=== PATIENT | female | born 1970 | race Caucasian/White ===

== ENCOUNTER 2021-05-19 18:31 | Inpatient (IN) ==
[2021-05-19] MEDS ORDERED: SODIUM CHLORIDE 0.9% 1000ML 1,000 ML IV ONE (18:45)
[2021-05-19] MEDS ORDERED: ACETAMINOPHEN 1,000 MG/100 ML VIAL IV STA (18:45)
--- NOTE | 2021-05-19 18:51 | Emergency Department Note ---
History of Present Illness General Chief complaint: Shortness of Breath/Dyspnea Stated complaint: Difficulty Breathing Time Seen by Provider: 05/19/21 18:34 Source: patient Mode of arrival: ambulatory Limitations: no limitations History of Present Illness Provider complaint: sob, cough, COVID Onset (ago): day(s) 9 Associated symptoms: + cough, + fever/chills, + headaches, + loss of appetite, + malaise, + nausea/vomiting and + shortness of breath; no chest pain This is a 50-year-old for presents emergency department with multiple complaints and Covid. Patient states her symptoms began 9 days ago, 1 day after her daughter was diagnosed with coronavirus. She states she assumed she was positive also. She states she initially started with some mild URI symptoms and a cough. Her symptoms began to progress and she did go to the [facility] her emergency room and was kept there overnight. She states she was given steroids at that time however was not discharged home on any. She states she was discharged with home oxygen and has been wearing that at 2 L/min. She states in the first several days she felt the oxygen was helping however over the last 2-3 she felt her breathing was worse. She states pulse ox at home on room air has been eighty-seven and 88%, and on her 2 L is at 93% although she still feels short of breath. Patient states she has persistent headaches, fevers, lower abdominal pain, and diarrhea. She denies any blood in her stools. Patient states she has not been able to eat due to nausea and loss of appetite although is not overtly vomiting. EMS reports they gave her a 500 mL bolus of normal saline and Solu-Medrol 125 mg in route. Patient denies any history of asthma, COPD, no history of tobacco abuse. Pt seen during a time of high acuity and national emergency pandemic while wearing PPE. Home Medications Medication Instructions Recorded Confirmed Type acetaminophen 500 mg tablet 1,000 mg PO Q6H PRN 05/19/21 05/19/21 History (Tylenol Extra Strength) azithromycin 250 mg tablet 250 mg PO DAILY 05/19/21 05/19/21 History dexamethasone 6 mg tablet 6 mg PO DAILY #10 tab 05/19/21 Rx (Decadron) Allergies Allergy/AdvReac Type Severity Reaction Status Date / Time Penicillins Allergy Unknown Verified 05/20/21 15:42 Sulfa (Sulfonamide Allergy Unknown Verified 05/20/21 15:42 Antibiotics) Past Med/Surg History Medical History (Updated 05/22/21 @ 07:09 by Brenna Giron DO) Endometriosis Kidney stone Surgical History (Updated 05/20/21 @ 15:42 by Katie Beck) S/P hysterectomy Social History (System 05/20/21 @ 15:42 by Katie Beck) Smoking Status: Former smoker Hx Alcohol Use: Yes Hx Substance Use: No Preferred Language: German Communication Ability: Effective 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 Beliefs That Will Affect Care: None Current Living Situation: Family Feels Safe at Home: No Safety Concerns: Feels Safe At This Time Assistive Devices: Glasses and Oxygen - Continuous Review of Systems A total of 10 systems reviewed and were otherwise negative All systems reviewed & are unremarkable except as noted in HPI & below Physical Exam Vital Signs Vital Signs - 24 hr 05/19/21 18:43 05/19/21 19:05 05/19/21 19:52 Temperature 39.5 C H Temperature Source Oral Pulse Rate 110 H Pulse Rate [Finger] 99 H Respiratory Rate 20 18 Respiratory Effort / Characteristics Non-Labored Respiratory Depth Blood Pressure 111/69 Blood Pressure [Right Arm] 136/87 Blood Pressure Mean 83 Blood Pressure Mean [Right Arm] 103 Blood Pressure Position [Right Arm] Lying Pulse Oximetry 87 L 93 Oxygen Delivery Method Room Air Nasal Cannula Oxygen Flow Rate 2 Sepsis Recent Fever Within 48 Hours Yes Sepsis New/Unexplained Change in Mental Status No Sepsis Action Taken by Nursing Physician Notified Oxygen Flow Rate - Titration 2 Pulse Oximetry Post Tiitration 93 05/19/21 20:10 05/19/21 20:15 05/19/21 22:55 Temperature 38.8 C H 38.8 C H 36.6 C Temperature Source Oral Oral Oral Pulse Rate Pulse Rate [Finger] 74 Respiratory Rate 17 Respiratory Effort / Characteristics Non-Labored Respiratory Depth Normal Blood Pressure Blood Pressure [Right Arm] 95/66 L Blood Pressure Mean Blood Pressure Mean [Right Arm] 75 Blood Pressure Position [Right Arm] Lying Pulse Oximetry 94 Oxygen Delivery Method Oxygen Flow Rate 3 Sepsis Recent Fever Within 48 Hours Sepsis New/Unexplained Change in Mental Status Sepsis Action Taken by Nursing Oxygen Flow Rate - Titration Pulse Oximetry Post Tiitration 05/19/21 23:29 Temperature Temperature Source Pulse Rate Pulse Rate [Finger] 71 Respiratory Rate 16 Respiratory Effort / Characteristics Respiratory Depth Blood Pressure Blood Pressure [Right Arm] 101/60 Blood Pressure Mean Blood Pressure Mean [Right Arm] 73 Blood Pressure Position [Right Arm] Lying Pulse Oximetry 96 Oxygen Delivery Method Room Air Oxygen Flow Rate Sepsis Recent Fever Within 48 Hours Sepsis New/Unexplained Change in Mental Status Sepsis Action Taken by Nursing Oxygen Flow Rate - Titration Pulse Oximetry Post Tiitration GENERAL: alert, ill appearing, well nourished, mild distress, non-toxic EYE EXAM: normal conjunctiva, PERRL and EOM's grossly intact OROPHARYNX: no exudate, no erythema, lips, buccal mucosa, and tongue normal and mucous membranes are moist NECK: supple, no nuchal rigidity, no adenopathy, non-tender LUNGS: Clear to auscultation. Normal chest wall mechanics, no w/r/r, RA sats 87%, NC placed HEART: no murmurs, S1 normal and S2 normal ABDOMEN: abdomen soft, non-tender, normo-active bowel sounds, no masses, no rebound or guarding. BACK: Back is symmetrical on inspection and there is no deformity, no midline tenderness, no CVA tenderness. SKIN: no rashes and no bruising UPPER EXTREMITIES: upper extremities are grossly normal. FROM, nml pulses b/l. LOWER EXTREMITIES: No pitting edema. FROM, nml pulses b/l. NEURO EXAM: Normal sensorium, cranial nerves II-XII grossly intact, normal speech, no gross weakness of arms, no gross weakness of legs. Gross sensation intact. Course Course 2124: Updated patient at bedside. I did review paperwork that was obtained from MADYSON Jarrett regarding her recent hospitalization. Patient did have a CT of the chest to rule out PE during this process on May 17. 2201: Discussed monoclonal antibodies with the patient after she reviewed the paperwork. Patient was scheduled to have this infusion performed tomorrow morning at [facility]. 5: Patient has finished monoclonal antibody infusion, will continue to mo nitor. 0026: Pt states she is feeling well. VS stable. Administered Medications Acetaminophen (Acetaminophen 325 Mg Tab) 650 mg PO Q4H PRN PRN Reason: Pain or Fever Stop: 06/19/21 15:01 Last Admin: 05/21/21 08:04 Dose: 650 mg Documented by: [id number] Benzonatate (Benzonatate 100 Mg Capsule) 100 mg PO TID JOSEPH Stop: 06/19/21 20:59 Last Admin: 05/21/21 20:40 Dose: 100 mg Documented by: [id number] Admin: 05/21/21 13:35 Dose: 100 mg Documented by: [id number] Admin: 05/21/21 08:03 Dose: 100 mg Documented by: [id number] Admin: 05/20/21 20:29 Dose: 100 mg Documented by: [id number] Enoxaparin Sodium (Enoxaparin Inj 40 Mg/0.4 Ml Syr) 40 mg SQ Q12H JOSEPH Stop: 06/19/21 15:01 Last Admin: 05/21/21 20:40 Dose: 40 mg Documented by: [id number] Admin: 05/21/21 08:02 Dose: 40 mg Documented by: [id number] Admin: 05/20/21 20:30 Dose: 40 mg Documented by: [id number] Dexamethasone 6 mg/ Syringe 1.5 mls @ 1 mls/min IV DAILY JOSEPH Stop: 05/31/21 08:59 Last Admin: 05/21/21 08:03 Dose: 1 mls/min Documented by: [id number] Potassium Chloride (Potassium Chloride Crtab 20 Meq Tabcr) 20 meq PO BID JOSEPH Stop: 06/20/21 08:59 Last Admin: 05/21/21 20:40 Dose: 20 meq Documented by: [id number] Discontinued Medications Acetaminophen (Acetaminophen 500 Mg Tab) 1,000 mg PO NOW STA Stop: 05/20/21 08:53 Last Admin: 05/20/21 10:28 Dose: 1,000 mg Documented by: [id number] Dexamethasone Sodium Phosphate (DexamethasonePf 10 Mg/Ml Vial) 6 mg IV NOW ONE Stop: 05/20/21 08:55 Last Admin: 05/20/21 10:27 Dose: 6 mg Documented by: [id number] Sodium Chloride (Nss 1000ml) 1,000 mls @ 999 mls/hr IV .Q1H1M ONE Stop: 05/19/21 19:45 Last Infusion: 05/19/21 20:38 Dose: 0 mls/hr Documented by: [id number] Admin: 05/19/21 19:11 Dose: 999 mls/hr Documented by: [id number] Acetaminophen (Ofirmev) 1,000 mg in 100 mls @ 400 mls/hr IV NOW STA Stop: 05/19/21 18:59 Last Infusion: 05/19/21 20:38 Dose: 0 mls/hr Documented by: [id number] Admin: 05/19/21 19:29 Dose: 400 mls/hr Documented by: [id number] Casirivimab 1,200 mg/ Sodium (Chloride) 110 mls @ 310 mls/hr IV NOW ONE; Protocol Stop: 05/19/21 22:41 Last Infusion: 05/19/21 23:21 Dose: 0 mls/hr Documented by: [id number] Admin: 05/19/21 22:59 Dose: 310 mls/hr Documented by: [id number] Sodium Chloride (Nss) 500 mls @ 999 mls/hr IV .Q31M ONE Stop: 05/19/21 23:58 Last Infusion: 05/20/21 00:05 Dose: 0 mls/hr Documented by: [id number] Admin: 05/19/21 23:30 Dose: 999 mls/hr Documented by: [id number] Sodium Chloride (Nss 1000ml) 1,000 mls @ 999 mls/hr IV .Q1H1M ONE Stop: 05/20/21 09:52 Last Infusion: 05/20/21 11:41 Dose: 0 mls/hr Documented by: [id number] Admin: 05/20/21 10:29 Dose: 999 mls/hr Documented by: [id number] Potassium Chloride (K Jose / Wtr) 10 meq in 100 mls @ 100 mls/hr IV Q1H JOSEPH Stop: 05/20/21 14:59 Last Infusion: 05/20/21 16:35 Dose: 0 mls/hr Documented by: [id number] Admin: 05/20/21 15:30 Dose: 100 mls/hr Documented by: [id number] Infusion: 05/20/21 15:11 Dose: 100 mls/hr Documented by: [id number] Admin: 05/20/21 14:11 Dose: 100 mls/hr Documented by: [id number] Potassium Chloride (K Jose / Wtr) 10 meq in 100 mls @ 100 mls/hr IV Q1H STA Stop: 05/20/21 11:31 Last Infusion: 05/20/21 13:10 Dose: 0 mls/hr Documented by: [id number] Admin: 05/20/21 11:41 Dose: 100 mls/hr Documented by: [id number] Sodium Chloride (Nss 1000ml) 1,000 mls @ 80 mls/hr IV .[id number] STA Stop: 05/21/21 00:01 Last Infusion: 05/20/21 18:30 Dose: 0 mls/hr Documented by: [id number] Admin: 05/20/21 11:41 Dose: 80 mls/hr Documented by: [id number] Potassium Chloride/Sodium Chloride (Normal Saline W/20 Meq Kcl) 20 meq in 1,000 mls @ 100 mls/hr IV .Q10H JOSEPH Stop: 06/19/21 15:01 Last Admin: 05/21/21 11:59 Dose: Not Given Documented by: [id number] Infusion: 05/21/21 11:59 Dose: 0 mls/hr Documented by: [id number] Admin: 05/21/21 03:11 Dose: 100 mls/hr Documented by: [id number] Infusion: 05/21/21 03:11 Dose: 100 mls/hr Documented by: [id number] Admin: 05/20/21 18:30 Dose: 100 mls/hr Documented by: [id number] Sodium Chloride (Nss 1000ml) 250 mls @ 999 mls/hr IV .Q16M ONE Stop: 05/20/21 17:57 Last Infusion: 05/20/21 18:30 Dose: 0 mls/hr Documented by: [id number] Admin: 05/20/21 18:09 Dose: 999 mls/hr Documented by: [id number] Ioversol (Optiray 320 125ml) 118 ml IV ONCE ONE Stop: 05/20/21 20:11 Last Admin: 05/20/21 20:10 Dose: 118 ml Documented by: [id number] Ketorolac Tromethamine (Ketorolac Tromethamine 15 Mg/Ml Vial) 10 mg IV NOW ONE Stop: 05/19/21 19:27 Last Admin: 05/19/21 19:30 Dose: 10 mg Documented by: [id number] Menthol (Cough Drop (Sugar Free) Angelica 24 Angelica/1 Box) 1 angelica BUCCAL NOW STA Stop: 05/20/21 23:45 Last Admin: 05/21/21 00:39 Dose: Not Given Documented by: [id number] Menthol (Cough Drop (Sugar Free) Angelica 24 Angelica/1 Box) Confirm Administered Dose 24 angelica BUCCAL .STK-MED ONE Stop: 05/20/21 23:35 Last Admin: 05/21/21 00:39 Dose: 24 angelica Documented by: [id number] Miscellaneous (Stat Iv) 1 ea N/A NOW STA Stop: 05/19/21 22:06 Last Admin: 05/19/21 23:48 Dose: 1 ea Documented by: [id number] Potassium Chloride (Potassium Chloride Crtab 20 Meq Tabcr) 20 meq PO NOW ONE Stop: 05/21/21 09:01 Last Admin: 05/21/21 08:57 Dose: 20 meq Documented by: [id number] Sodium Chloride (Sodium Chloride 0.9% 10ml Flush) 30 ml IV ONCE ONE Stop: 05/19/21 22:36 Last Admin: 05/19/21 23:20 Dose: 30 ml Documented by: [id number] Medical Decision Making Differential Diagnosis Differential diagnoses includes but is not limited to pneumonia, bronchitis, COPD/Asthma exacerbation, pneumothorax, pulmonary embolism, congestive heart failure, acute coronary syndrome Medical Records Attestation: I reviewed the patient's medical records. Home Medications Current Medication List: was personally reviewed by me Laboratory Data Attestation: I reviewed the patient's lab results. Result diagrams: 05/21/21 07:19 05/21/21 07:19 Lab Results 05/19/21 05/19/21 05/20/21 Range/Units 18:55 18:55 09:07 WBC 5.47 9.68 (4.8-10.8) K/uL RBC 4.57 4.81 (4.2-5.4) M/uL Hgb 14.1 14.6 (12.0-16.0) g/dL Hct 40.1 42.8 (37-47) % MCV 87.7 89.0 (80-100) fL MCH 30.9 30.4 (25-34) pg MCHC 35.2 34.1 (32-36) g/dL RDW Std Deviation 44.4 45.5 (36.4-46.3) fL RDW Coeff of Yessenia 13.7 13.9 (11.5-14.5) % Plt Count 140 166 (130-400) K/uL MPV 9.6 9.5 (7.4-10.4) fL Immature Gran % (Auto) 0.2 0.2 % Neut % (Auto) 87.2 90.0 % Lymph % (Auto) 8.6 6.0 % [place] % (Auto) 3.8 3.7 % Eos % (Auto) 0.0 0.0 % Baso % (Auto) 0.2 0.1 % Neut # (Auto) 4.77 8.71 H (1.4-6.5) K/uL Lymph # (Auto) 0.47 L 0.58 L (1.2-3.4) K/uL [place] # (Auto) 0.21 0.36 (0.11-0.59) K/uL Eos # (Auto) 0.00 0.00 (0-0.5) K/uL Baso # (Auto) 0.01 0.01 (0-0.2) K/uL Immature Gran # (Auto) 0.01 0.02 (0.00-0.02) K/uL Sodium 134 L (136-145) mmol/L Potassium 3.2 L (3.5-5.1) mmol/L Chloride 101 (98-107) mmol/L Carbon Dioxide 24 (21-32) mmol/L Anion Gap 9.0 (3-11) BUN 15 (7-18) mg/dl Creatinine 0.69 (0.6-1.2) mg/dl Est Cr Clr Drug Dosing 103.6 ml/min Est GFR ( Amer) 116.8 ml/min Est GFR (Non-Af Amer) 100.8 ml/min BUN/Creatinine Ratio 21.0 H (10-20) Glucose 126 H (70-99) mg/dl Calcium 8.6 (8.5-10.1) mg/dl Magnesium 2.0 (1.8-2.4) mg/dl Total Bilirubin 0.7 (0.2-1) mg/dl AST 100 H (15-37) U/L ALT 87 H (12-78) U/L Alkaline Phosphatase 107 (45-117) U/L Troponin I < 0.015 (0-0.045) ng/ml NT-Pro-B Natriuret Pep 176 (0-900) pg/ml Total Protein 7.2 (6.4-8.2) gm/dl Albumin 3.4 (3.4-5.0) gm/dl Globulin 3.8 (2.5-4.0) gm/dl Albumin/Globulin Ratio 0.9 (0.9-2) Lipase 145 (73-393) U/L TSH (0.300-4.500) uIu/ml 05/20/21 Range/Units 09:07 WBC (4.8-10.8) K/uL RBC (4.2-5.4) M/uL Hgb (12.0-16.0) g/dL Hct (37-47) % MCV (80-100) fL MCH (25-34) pg MCHC (32-36) g/dL RDW Std Deviation (36.4-46.3) fL RDW Coeff of Yessenia (11.5-14.5) % Plt Count (130-400) K/uL MPV (7.4-10.4) fL Immature Gran % (Auto) % Neut % (Auto) % Lymph % (Auto) % [place] % (Auto) % Eos % (Auto) % Baso % (Auto) % Neut # (Auto) (1.4-6.5) K/uL Lymph # (Auto) (1.2-3.4) K/uL [place] # (Auto) (0.11-0.59) K/uL Eos # (Auto) (0-0.5) K/uL Baso # (Auto) (0-0.2) K/uL Immature Gran # (Auto) (0.00-0.02) K/uL Sodium 139 (136-145) mmol/L Potassium 3.4 L (3.5-5.1) mmol/L Chloride 104 (98-107) mmol/L Carbon Dioxide 25 (21-32) mmol/L Anion Gap 10.0 (3-11) BUN 13 (7-18) mg/dl Creatinine 0.58 L (0.6-1.2) mg/dl Est Cr Clr Drug Dosing 123.3 ml/min Est GFR ( Amer) 123.7 ml/min Est GFR (Non-Af Amer) 106.7 ml/min BUN/Creatinine Ratio 22.6 H (10-20) Glucose 92 (70-99) mg/dl Calcium 8.9 (8.5-10.1) mg/dl Magnesium 2.7 H (1.8-2.4) mg/dl Total Bilirubin 0.5 (0.2-1) mg/dl AST 101 H (15-37) U/L ALT 96 H (12-78) U/L Alkaline Phosphatase 99 (45-117) U/L Troponin I < 0.015 (0-0.045) ng/ml NT-Pro-B Natriuret Pep (0-900) pg/ml Total Protein 7.3 (6.4-8.2) gm/dl Albumin 3.4 (3.4-5.0) gm/dl Globulin 3.9 (2.5-4.0) gm/dl Albumin/Globulin Ratio 0.9 (0.9-2) Lipase (73-393) U/L TSH 0.464 (0.300-4.500) uIu/ml Imaging Data Radiologist's Impression: Chest X-Ray 05/19/21 18:45 XR chest 1V portable HISTORY: 50 years-old Female covid, sob, cough acute shortness of breath with cough COMPARISON: None TECHNIQUE: Portable AP view of the chest FINDINGS: Cardiac silhouette is upper limits of normal in size. Interstitial coarsening with ill-defined bilateral peripheral predominant airspace opacities, left greater than right. No pneumothorax or large pleural effusion. The bones appear normal. IMPRESSION: Bilateral pulmonary opacities are suggestive of viral pneumonia. ACT 112: Negative or not required by law. The above report was generated using voice recognition software. It may contain grammatical, syntax or spelling errors. Electronically signed by: David Boo M.D. 05/19/2021 7:23 PM ECG Data Attestation: I personally reviewed and interpreted this ECG as follows: Indication: + SOB/dyspnea and + weakness Rate (beats per minute): 105 Rhythm: + sinus tachycardia ECG Intervals/blocks: + Normal QRS and + Normal QT ECG [place]: + Normal ECG ST segments: + Normal ST segments MDM Narrative This is a 50-year-old female resents the emergency department complaining of shortness of breath. Patient with known coronavirus and was already placed on oxygen via nasal cannula to wear at home. Patient had previously taken a course of prednisone as an outpatient as prescribed by her PCP. Patient seen and evaluated here, did appear hemodynamically stable, and had no increased work of breathing or significant respiratory distress. Patient's oxygen was turned up to 3 L/min and patient stated she did feel improved. Labs are reassuring. Mild transaminitis I feel is likely secondary to her viral process. Patient's chest x-ray is consistent with a Covid infection. I did review outpatient paperwork from MADYS[facility] Jarrett during patient's recent admission. She did have a CT of the chest 2 days ago. This was negative for PE and again consistent with Covid pneumonia. I do not feel patient requires repeat CT at this time. I do not suspect PE, ACS, CHF, pericarditis/Myocarditis, pericardial effusion, mediastinitis, tamponade, dissection. I did discuss with the patient monoclonal antibody treatment, she was scheduled for this as an outpatient tomorrow. We will proceed with this tonight and continue to observe the patient. Patient observed for many hours here as a precaution and continue to report feeling improved. Did discuss with patient close follow-up, slightly increasing her home oxygen therapy, use of Decadron at home, symptoms to watch and return for, she verbalized understanding was in agreement with plan. An order was placed for continuous cardiac monitoring. The monitor shows a rate of _82__ with __normal sinus_ rhythm. Patient has no family history of pneumonia. Patient was first seen and observation began at 1834 and was necessary in order to evaluate patient's dyspnea in the setting of Covid, provide additional therapies and monitor for changes. Upon re-evaluation, 10 hours of observation revealed that the patient could be discharged. Discharge time at 0800. Impression & Plan Dyspnea, COVID-19, Cough, Fatigue, Hx monoclonal drug therapy Discharge Plan Visit Data Chief Complaint: Shortness of Breath/Dyspnea Stated Complaint: Difficulty Breathing ED Provider: Rafi Lindsey Discharge Problem: Dyspnea, COVID-19, Cough, Fatigue, Hx monoclonal drug therapy Patient Disposition: Home - Self-Care Condition: Good Discharge Instructions Interventions: ED Discharge Assessment Last Done: 05/20/21 14:11
[2021-05-19 19:05] LABS: Basophils # (auto) 0.01 K/uL (0-0.2); Basophils % (auto) 0.2 %; Hematocrit (blood only) 40.1 % (37-47); Hemoglobin 14.1 g/dL (12.0-16.0); Immature Granulocytes # (auto) 0.01 K/uL (0.00-0.02); Immature Granulocytes % (auto) 0.2 %; Lymphocytes # (auto) 0.47 K/uL (1.2-3.4); Lymphocytes % (auto) 8.6 %; Mean Corpuscular Hemoglobin 30.9 pg (25-34); Mean Corpuscular Hgb Conc 35.2 g/dL (32-36); Mean Corpuscular Volume 87.7 fL (80-100); Mean Platelet Volume 9.6 fL (7.4-10.4); Monocytes # (auto) 0.21 K/uL (0.11-0.59); Monocytes % (auto) 3.8 %; Neutrophils # (auto) 4.77 K/uL (1.4-6.5); Neutrophils % (auto) 87.2 %; Platelet Count 140 K/uL (130-400); RDW Coefficient of Variation 13.7 % (11.5-14.5); RDW Standard Deviation 44.4 fL (36.4-46.3); Red Blood Count 4.57 M/uL (4.2-5.4); White Blood Count 5.47 K/uL (4.8-10.8)
[2021-05-19 19:22] LABS: Alanine Aminotransferase 87 U/L (12-78); Albumin Level 3.4 gm/dl (3.4-5.0); Aspartate Aminotransferase 100 U/L (15-37); Blood Urea Nitrogen 15 mg/dl (7-18); Calcium 8.6 mg/dl (8.5-10.1); Carbon Dioxide 24 mmol/L (21-32); Chloride 101 mmol/L (98-107); Creatinine Clr Calc Pharmacy 103.6 ml/min; Est GFR (African American) 116.8 ml/min; Est GFR (Non-African American) 100.8 ml/min; Glucose 126 mg/dl (70-99); Lipase 145 U/L (73-393); Potassium 3.2 mmol/L (3.5-5.1); Sodium 134 mmol/L (136-145)
--- NOTE | 2021-05-19 19:24 | XRay Report ---
XR chest 1V portable HISTORY: 50 years-old Female covid, sob, cough acute shortness of breath with cough COMPARISON: None TECHNIQUE: Portable AP view of the chest FINDINGS: Cardiac silhouette is upper limits of normal in size. Interstitial coarsening with ill-defined bilate ral peripheral predominant airspace opacities, left greater than right. No pneumothorax or large pleu ral effusion. The bones appear normal. IMPRESSION: Bilateral pulmonary opacities are suggestive of viral pneumonia. ACT 112: Negative or not required by law. The above report was generated using voice recognition software. It may contain grammatical, syntax o r spelling errors. Electronically signed by: David Boo M.D. 05/19/2021 7:23 PM
[2021-05-19] MEDS ORDERED: KETOROLAC TROMETHAMINE 15 MG/ML VIAL IV ONE (19:26)
[2021-05-19 19:27] LABS: Albumin Globulin Ratio 0.9 (0.9-2); Alkaline Phosphatase 107 U/L (45-117); Bilirubin,Total 0.7 mg/dl (0.2-1); Globulin 3.8 gm/dl (2.5-4.0); NT Pro B Type Natriuretic Pept 176 pg/ml (0-900); Total Protein 7.2 gm/dl (6.4-8.2); Troponin I < 0.015 ng/ml (0-0.045)
[2021-05-19] MEDS ORDERED: ACETAMINOPHEN 325 MG TAB PO PRN (22:05)
[2021-05-19] MEDS ORDERED: methylPREDNISolone 125 MG/2 ML VIAL IV PRN (22:05)
[2021-05-19] MEDS ORDERED: diphenhydrAMINE 50 MG/ML VIAL IV PRN (22:05)
[2021-05-19] MEDS ORDERED: STAT IV STA (22:05)
[2021-05-19] MEDS ORDERED: ONDANSETRON INJ 2 MG/ML 2 ML VIAL IV PRN (22:05)
[2021-05-19] MEDS ORDERED: EPINEPHrine INJ 1 MG/ML AMP IM PRN (22:05)
[2021-05-19] MEDS ORDERED: CASIRIVIMAB/IMDEVIMAB 1,200 MG in 0.9 % SODIUM CHLORIDE 100 ML IV ONE (22:20)
[2021-05-19] MEDS ORDERED: 0.2 MICRON FILTER SET 1 EA IV ONE (22:35)
[2021-05-19] MEDS ORDERED: SODIUM CHLORIDE 0.9% 10ML FLUSH IV ONE (22:35)
[2021-05-19] MEDS ORDERED: SODIUM CHLORIDE 0.9% 500 ML IV ONE (23:28)
[2021-05-20] MEDS ORDERED: ACETAMINOPHEN 500 MG TAB PO STA (08:52)
[2021-05-20] MEDS ORDERED: SODIUM CHLORIDE 0.9% 1000ML 1,000 ML IV ONE (08:52)
[2021-05-20] MEDS ORDERED: dexAMETHasone**PF** 10 MG/ML VIAL IV ONE (08:54)
--- NOTE | 2021-05-20 08:58 | Emergency Department Note ---
ED Visit Note Patient was waiting here in the emergency department overnight awaiting transportation home in the morning. Patient has been on her oxygen all night and was doing well. Alerted by staff this morning that she began to complain of worsening shortness of breath headaches and some chest burning. Patient was noted to have an elevated heart rate. Patient does have a fever now. Given additional Tylenol. Patient not in extremis on reevaluation or altered. Patient's records and note from last night were reviewed. Recently had a negative PE study in the last several days per note from last night. Patient with Covid pneumonia. EKG completed here this morning questions SVT via electronic interpretation but on the V1 lead appears clear P waves. Believe this is likely significantly sinus tachycardia related to her fever and illness. Given IV fluid and Tylenol here. Given a dose of dexamethasone given her hypoxia and oxygen usage and her extended stay. Previously received steroids. Discussed with the patient given her significant fatigue and dyspnea even while going to the bathroom where she desats, don't feel the patient is stable enough to go home. She is in agreement. Asked the hospitalist to evaluate for admission. Repeat blood work from this morning was sent. Lower suspicion at this time for acute ACS. Repeat blood work is reassuring with a negative troponin. Question of some part of this is reactive due to her fever. Patient currently persistent tachycardia that later broke here. Given her Covid illness I do not feel treatment with adenosine is appropriate given her stability although do question if she may have experienced a brief episode of sustained SVT or a flutter. Hospitalist agrees with this yuni n. EK bpm sinus tachycardia without PVC. No acute ST segment elevation with some V3 and V2 T wave inversions noted. Compared to previous From this past evening heart rates now increased but similar morphologies. . : Dyspnea Qualifiers: Dyspnea type: shortness of breath Qualified Code(s): R06.02 - Shortness of breath Fatigue Qualifiers: Fatigue type: unspecified Qualified Code(s): R53.83 - Other fatigue
[2021-05-20 09:22] LABS: Basophils # (auto) 0.01 K/uL (0-0.2); Basophils % (auto) 0.1 %; Hematocrit (blood only) 42.8 % (37-47); Hemoglobin 14.6 g/dL (12.0-16.0); Immature Granulocytes # (auto) 0.02 K/uL (0.00-0.02); Immature Granulocytes % (auto) 0.2 %; Lymphocytes # (auto) 0.58 K/uL (1.2-3.4); Mean Corpuscular Hemoglobin 30.4 pg (25-34); Mean Corpuscular Hgb Conc 34.1 g/dL (32-36); Mean Platelet Volume 9.5 fL (7.4-10.4); Monocytes # (auto) 0.36 K/uL (0.11-0.59); Monocytes % (auto) 3.7 %; Neutrophils # (auto) 8.71 K/uL (1.4-6.5); Platelet Count 166 K/uL (130-400); RDW Coefficient of Variation 13.9 % (11.5-14.5); RDW Standard Deviation 45.5 fL (36.4-46.3); Red Blood Count 4.81 M/uL (4.2-5.4); White Blood Count 9.68 K/uL (4.8-10.8)
[2021-05-20 09:40] LABS: Alanine Aminotransferase 96 U/L (12-78); Albumin Level 3.4 gm/dl (3.4-5.0); Aspartate Aminotransferase 101 U/L (15-37); BUN Creatinine Ratio 22.6 (10-20); Blood Urea Nitrogen 13 mg/dl (7-18); Calcium 8.9 mg/dl (8.5-10.1); Carbon Dioxide 25 mmol/L (21-32); Chloride 104 mmol/L (98-107); Creatinine Clr Calc Pharmacy 123.3 ml/min; Est GFR (African American) 123.7 ml/min; Est GFR (Non-African American) 106.7 ml/min; Glucose 92 mg/dl (70-99); Magnesium 2.7 mg/dl (1.8-2.4); Potassium 3.4 mmol/L (3.5-5.1); Sodium 139 mmol/L (136-145)
[2021-05-20 09:51] LABS: Albumin Globulin Ratio 0.9 (0.9-2); Alkaline Phosphatase 99 U/L (45-117); Bilirubin,Total 0.5 mg/dl (0.2-1); Globulin 3.9 gm/dl (2.5-4.0); Thyroid Stimulating Hormone 0.464 uIu/ml (0.300-4.500); Total Protein 7.3 gm/dl (6.4-8.2); Troponin I < 0.015 ng/ml (0-0.045)
--- NOTE | 2021-05-20 09:56 | History & Physical Report ---
Date of Service May 20, 2021 Assessment & Plan (1) Acute respiratory failure with hypoxia: Plan: AHRF 2/2 COVID19 PNA - See COVID19 tx (2) COVID-19: Plan: - COVID19 positive - ~day 10 of illness - Receieved monoclonal Ab yesterday - Progressive worsening, 2L o2 requirement, ?development of SVT overnight -Admit to PCU, +1L NSS, continue dexamethasone 6mg daily - Remdesivir deferred after risk/benefit discussion. Pt on 10 day of sx with less benefit and has a mild transaminitis on admission - Spirometer, Flutter PRN - Nebs Q6H PRN (3) Cough: Plan: - COVID tx as noted (4) Fatigue: Plan: - COVID tx as noted (5) Tachycardia: Plan: - Initial concern for SVT - EKG: tachycardic, P waves visable on EKG. Suspect sinus tach - Admit to PCU - IVFM and tx as above -Heart rate improved with supportive care and fluids - Continue to monitor (6) DVT prophylaxis: Plan: Lovenox COVID dosing Diet: Regular, IVFM 100cc/hr Dispo: PCU COVID+ CODE STATUS: Full Code (7) Transaminitis: History of Present Illness Primary Care Provider: Bill Man, COVID PNA Started with cough 10 days ago, intermittent fevers and chills. Persistent cough and shortness of breath have worsened over the last week. Some burning in her throught. No chest pain, chest pressure, or palpitations. Endorses terrible headache. Diarrhea 1x a day liquid no blood or melena. Some cough/stress incontinence. No appetite, has not been eating and trying to drink fluids as much as she can at home. ONly keeping water down. Denies nausea. Intermittent abdominal pain. Got monoclonal ab last night. No fhx of arrythmia. Lives at home. Daughter had COVID 19 day before she did, 'breezed right through it and wasn't very sick.' Did not get the COVID vaccination MedHx: Denies other med problems, hx of kidney stones Medications: NOne Allergie: PCN, Sulfa Fhx: No fhx of blood clots, strokes, [place] Social: Lives at home with and 3 children, no one other than daughter is sick. No hx of tobacco product use. Rare social alcohol. No recreational drug use.l No Hx of asthma or lung problems. Discussed case with pts in detail. Confirms had CT-PE at [facility] which was negative Allergies Allergy/AdvReac Type Severity Reaction Status Date / Time Penicillins Allergy Unknown Verified 05/19/21 19:22 Sulfa (Sulfonamide AdvReac jaw locked Verified 05/19/21 19:22 Antibiotics) Home Medications Medication Instructions Recorded Confirmed Type acetaminophen 500 mg tablet 1,000 mg PO Q6H PRN 05/19/21 05/19/21 History (Tylenol Extra Strength) azithromycin 250 mg tablet 250 mg PO DAILY 05/19/21 05/19/21 History dexamethasone 6 mg tablet 6 mg PO DAILY #10 tab 05/19/21 Rx (Decadron) Past Med/Surg History Medical History (Updated 05/20/21 @ 15:03 by Viet Alvarado MD) Endometriosis Kidney stone Surgical History (Updated 05/20/21 @ 09:54 by Viet Alvarado MD) S/P hysterectomy Social History Smoking Status: Never smoker Feels Safe at Home: Yes Review of Systems Review of Systems: Constitutional: See HPI Eyes: Denies double vision, vision change, eye pain ENT: Denies ear pain, sore throat, sinus pain Cardiovascular: Denies Chest pain, chest pressure, palpitations, extremity swelling Respiratory: See HPI Gastrointestinal: See HPI Genitourinary: See HPI Musculoskeletal: Endorses body aches, global fatigue Integumentary:Denies rash, lesions, bruising Neurological: See HPI Physical Exam Physical Exam: General: A&Ox3. Appears ill. Skin warm, moist. HEENT: Atraumatic, normocephalic. Visual acuity and hearing grossly intact. Pulm: Bilateral crackles, expiratory wheezes appreciated. Symmetrical chest rise. No respiratory distress. Cardiac: tachycardic, regular, -mrg. Radial pulses intact and symmetrical. Abdominal: Nontender, nondistended, soft. BS present. CRANIAL NERVES: II: Pupils equal and reactive, no relative afferent pupillary defect, no VF cuts III, IV, : EOM intact, no gaze preference or deviation, no nystagmus. 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 PT/radial pulse intact and symmetrical Results & Data Results & Data ([facility]) Vital Signs (Past 12 Hours) Vital Signs Temp Pulse Pulse Resp BP BP Pulse Ox 05/20/21 08:48 39.5 C H 153 H 21 119/80 95 05/20/21 05:44 98 05/20/21 03:27 97 05/20/21 02:22 86 H 99/56 L 99 05/19/21 23:29 71 16 101/60 96 05/19/21 22:55 36.6 C 74 17 95/66 L 94 Laboratory Results Abnormal lab results 05/19/21 05/19/21 05/20/21 Range/Units 18:55 18:55 09:07 Neut # (Auto) 8.71 H (1.4-6.5) K/uL Lymph # (Auto) 0.47 L 0.58 L (1.2-3.4) K/uL Sodium 134 L (136-145) mmol/L Potassium 3.2 L (3.5-5.1) mmol/L Creatinine (0.6-1.2) mg/dl BUN/Creatinine Ratio 21.0 H (10-20) Glucose 126 H (70-99) mg/dl Magnesium (1.8-2.4) mg/dl AST 100 H (15-37) U/L ALT 87 H (12-78) U/L 05/20/21 Range/Units 09:07 Neut # (Auto) (1.4-6.5) K/uL Lymph # (Auto) (1.2-3.4) K/uL Sodium (136-145) mmol/L Potassium 3.4 L (3.5-5.1) mmol/L Creatinine 0.58 L (0.6-1.2) mg/dl BUN/Creatinine Ratio 22.6 H (10-20) Glucose (70-99) mg/dl Magnesium 2.7 H (1.8-2.4) mg/dl AST 101 H (15-37) U/L ALT 96 H (12-78) U/L Diagnostic Findings Chest X-Ray 05/19/21 18:45 XR chest 1V portable HISTORY: 50 years-old Female covid, sob, cough acute shortness of breath with cough COMPARISON: None TECHNIQUE: Portable AP view of the chest FINDINGS: Cardiac silhouette is upper limits of normal in size. Interstitial coarsening with ill-defined bilateral peripheral predominant airspace opacities, left greater than right. No pneumothorax or large pleural effusion. The bones appear normal. IMPRESSION: Bilateral pulmonary opacities are suggestive of viral pneumonia. ACT 112: Negative or not required by law. The above report was generated using voice recognition software. It may contain grammatical, syntax or spelling errors. Electronically signed by: David Boo M.D. 05/19/2021 7:23 PM PG Care Time/CCT Total # of Minutes Spent Total Time Spent with Patient: Total time spent is greater than 50% in coordination of care (as documented) at patient's floor/unit and/or counseling patient: Coding Level of Care Code 54451 Initial Inpt Care Lvl 3 Diagnoses Acute respiratory failure with hypoxia J96.01 COVID-19 U07.1 Cough R05 Fatigue R53.83 Fatigue type: unspecified DVT prophylaxis Z29.9 Tachycardia R00.0 Transaminitis R74.01 (1) Fatigue Fatigue type: unspecified Qualified Code(s): R53.83 - Other fatigue
[2021-05-20] MEDS ORDERED: POTASSIUM CHLORIDE / WTR 10 MEQ/100 ML PLCT IV STA (10:32)
[2021-05-20] MEDS ORDERED: SODIUM CHLORIDE 0.9% 1000ML 1,000 ML IV STA (11:32)
[2021-05-20] MEDS: POTASSIUM CHLORIDE / WTR 10 MEQ/100 ML PLCT IV SCH ×2 (14:11→15:30)
[2021-05-20] MEDS ORDERED: ONDANSETRON INJ 2 MG/ML 2 ML VIAL IV PRN (15:02)
[2021-05-20] MEDS ORDERED: MoRPHine SULFATE 2 MG/ML CARP IV PRN (15:02)
[2021-05-20] MEDS ORDERED: HYDROmorphone INJ 1 MG/ML SYRINGE IV PRN (15:02)
--- NOTE | 2021-05-20 15:28 | Electrocardiogram Report ---
Test Reason : Blood Pressure : / mmHG Vent. Rate : 105 BPM Atrial Rate : 105 BPM P-R Int : 144 ms QRS Dur : 084 ms QT Int : 346 ms P-R-T Axes : 064 -10 034 degrees QTc Int : 457 ms Sinus tachycardia Possible Left atrial enlargement Nonspecific ST and T wave abnormality Abnormal ECG No previous ECGs available Confirmed by Lennox Lindquist ([id number]) on 05/20/2021 3:27:48 PM Referred By: REFERRED SELF Confirmed By:Lennox Lindquist
--- NOTE | 2021-05-20 15:34 | Electrocardiogram Report ---
Test Reason : Blood Pressure : / mmHG Vent. Rate : 152 BPM Atrial Rate : 152 BPM P-R Int : 000 ms QRS Dur : 082 ms QT Int : 340 ms P-R-T Axes : 000 -35 039 degrees QTc Int : 540 ms Sinus tachycardia Left axis deviation Nonspecific ST and T wave abnormality Abnormal ECG When compared with ECG of 19-MAY-2021 19:43, (unconfirmed) No significant change was found Confirmed by Lennox Lindquist ([id number]) on 05/20/2021 3:34:22 PM Referred By: REFERRED SELF Confirmed By:Lennox Lindquist
--- NOTE | 2021-05-20 15:39 | Electrocardiogram Report ---
Test Reason : Blood Pressure : / mmHG Vent. Rate : 099 BPM Atrial Rate : 099 BPM P-R Int : 164 ms QRS Dur : 088 ms QT Int : 332 ms P-R-T Axes : 069 -06 046 degrees QTc Int : 426 ms Normal sinus rhythm Nonspecific ST and T wave abnormality Abnormal ECG When compared with ECG of 20-MAY-2021 08:40, (unconfirmed) Vent. rate has decreased BY 53 BPM Confirmed by Lennox Lindquist ([id number]) on 05/20/2021 3:38:59 PM Referred By: REFERRED SELF Confirmed By:Lennox Lindquist
[2021-05-20 17:13] LABS: D Dimer 1100 ug/L FEU (0-500)
[2021-05-20] MEDS ORDERED: SODIUM CHLORIDE 0.9% 1000ML 250 ML IV ONE (17:42)
[2021-05-20] MEDS: NSS + 20MEQ KCL 20 MEQ/1,000 ML BAG IV SCH (18:30)
[2021-05-20] MEDS ORDERED: OPTIRAY 320 125ml IV ONE (20:10)
--- NOTE | 2021-05-20 20:28 | CT Scan Report ---
CHEST CTA for PULMONARY ARTERIES CT DOSE: 518.01 mGycm HISTORY: Shortness of breath. Covid positive. TECHNIQUE: Multiaxial CT images of the chest were performed following the intravenous administration of contrast to evaluate the pulmonary arteries. Maximal intensity projection images were also obtaine d. A dose lowering technique was utilized adhering to the principles of ALARA. COMPARISON STUDY: None. FINDINGS: Limited views of the upper abdomen demonstrate hepatic steatosis and a normal spleen. A few prominent mediastinal and bilateral hilar lymph nodes. These are likely reactive to the pneumonia. T he heart is normal in size. Normal esophagus. No pleural or pericardial effusions. No fractures withi n the visualized osseous structures of the chest. No pneumothorax. The central airways are patent. Mu ltifocal groundglass airspace opacities most pronounced within the bilateral lower lobes. This is con sistent with a viral pneumonia. Normal caliber thoracic aorta with no evidence for dissection. No derrick ling defects within the pulmonary arteries to suggest a pulmonary embolus. IMPRESSION: 1. No evidence for pulmonary embolus. 2. Moderate multifocal groundglass airspace opacities consistent with a viral pneumonia. ACT 112: Negative or not required by law. Electronically signed by: Saul Chau M.D. 05/20/2021 8:27 PM
[2021-05-20] MEDS: BENZONATATE 100 MG CAPSULE PO SCH (20:29)
[2021-05-20] MEDS: ENOXAPARIN INJ 40 MG/0.4 ML SYR SQ SCH (20:30)
[2021-05-20] MEDS ORDERED: COUGH DROP (SUGAR FREE) LOZ 24 LOZ/1 BOX BUCCAL ONE (23:34)
[2021-05-20] MEDS ORDERED: COUGH DROP (SUGAR FREE) LOZ 24 LOZ/1 BOX BUCCAL STA (23:44)
[2021-05-21] MEDS: NSS + 20MEQ KCL 20 MEQ/1,000 ML BAG IV SCH ×2 (03:11→11:59)
[2021-05-21 07:59] LABS: Basophils # (auto) 0.01 K/uL (0-0.2); Basophils % (auto) 0.2 %; Hematocrit (blood only) 37.1 % (37-47); Hemoglobin 12.6 g/dL (12.0-16.0); Immature Granulocytes # (auto) 0.01 K/uL (0.00-0.02); Immature Granulocytes % (auto) 0.2 %; Lymphocytes # (auto) 1.07 K/uL (1.2-3.4); Lymphocytes % (auto) 16.5 %; Mean Corpuscular Hemoglobin 30.3 pg (25-34); Mean Corpuscular Volume 89.2 fL (80-100); Mean Platelet Volume 9.3 fL (7.4-10.4); Monocytes # (auto) 0.26 K/uL (0.11-0.59); Neutrophils # (auto) 5.14 K/uL (1.4-6.5); Neutrophils % (auto) 79.1 %; Platelet Count 178 K/uL (130-400); RDW Coefficient of Variation 13.8 % (11.5-14.5); RDW Standard Deviation 45.6 fL (36.4-46.3); Red Blood Count 4.16 M/uL (4.2-5.4); White Blood Count 6.49 K/uL (4.8-10.8)
[2021-05-21] MEDS: ENOXAPARIN INJ 40 MG/0.4 ML SYR SQ SCH ×2 (08:02→20:40)
[2021-05-21] MEDS: BENZONATATE 100 MG CAPSULE PO SCH ×3 (08:03→20:40)
[2021-05-21] MEDS: dexAMETHasone 6 MG in SYRINGE 0 ML IV SCH (08:03)
[2021-05-21] MEDS: ACETAMINOPHEN 325 MG TAB PO PRN (08:04)
[2021-05-21 08:30] LABS: Albumin Level 2.8 gm/dl (3.4-5.0); BUN Creatinine Ratio 19.7 (10-20); Calcium 8.5 mg/dl (8.5-10.1); Creatinine Clr Calc Pharmacy 159.2 ml/min; Est GFR (African American) 133.5 ml/min; Est GFR (Non-African American) 115.2 ml/min; Potassium 3.3 mmol/L (3.5-5.1)
[2021-05-21 08:33] LABS: Albumin Globulin Ratio 0.7 (0.9-2); Bilirubin,Total 0.6 mg/dl (0.2-1); Globulin 3.8 gm/dl (2.5-4.0); Total Protein 6.6 gm/dl (6.4-8.2)
[2021-05-21] MEDS ORDERED: POTASSIUM CHLORIDE CRTAB 20 MEQ TABCR PO ONE (09:00)
--- NOTE | 2021-05-21 13:54 | Hospitalist Progress Note ---
Date of Service May 21, 2021 Assessment & Plan (1) Acute respiratory failure with hypoxia: Plan: - COVID19 positive - Presented on 05/20 at ~day 10 of illness - Receieved monoclonal Ab 05/19 -Tenuous require 2 L, appears ill - Remdesivir deferred after risk/benefit discussion. Pt on 10 day of sx with less benefit and has a mild transaminitis on admission - Spirometer, Flutter PRN - Nebs Q6H PRN Continue Decadron 10-day course (2) COVID-19: Plan: Treatment as otherwise noted D-dimer elevated, given elevated D-dimer on admission with tacky arrhythmia was concerned for potential CT PE from patient's interval assessment at [facility] Repeat CTPE ordered 05/20. No evidence for pulmonary embolus. Moderate multifocal groundglass airspace opacities consistent with a viral pneumonia. (3) Cough: Plan: Tessalon as needed, Covid treatment as noted (4) Fatigue: Plan: 2/2 Covid pneumonia expect slow gradual resolution (5) Tachycardia: Plan: Sinus tachycardia Initial concern for SVT, on EKG P waves visible Improved substantially following fluid resuscitation and supportive care Continue supportive care, fluids as needed if poor p.o. intake, continue telemetry (6) DVT prophylaxis: Plan: Lovenox Covid dosing (7) Transaminitis: Plan: 2/2 Covid, continue to trend Admission and Anticipated Discharge Date Admission Date: May 20, 2021 Subjective Seen at bedside today. And reports she continues to feel very ill and wiped out, a little bit better today and is eating a little bit better. She reports she is still requiring oxygen, and still has fevers, chills improved. Persistent intermittent headache continues. She is not short of breath at time of assessment, but reports she becomes short of breath easily especially with coughing. Cough is nonproductive. No nausea/vomiting. No chest pain/chest pressure this morning. No leg edema. No dysuria. Is very concerned about returning home and how long she is contagious for, discussed Covid course and will provide literature resources to patient. Review of Systems Review of Systems: Constitutional: See HPI Eyes: Denies double vision, vision change, eye pain ENT: Denies ear pain, sore throat, sinus pain Cardiovascular: Denies Chest pain, chest pressure, palpitations, extremity swelling Respiratory: See HPI Gastrointestinal: See HPI Genitourinary: See HPI Musculoskeletal: Endorses body aches, global fatigue Integumentary:Denies rash, lesions, bruising Neurological: See HPI Physical Exam Physical Exam: General: A&Ox3. Appears ill. Skin warm, moist. HEENT: Atraumatic, normocephalic. Visual acuity and hearing grossly intact. Pulm: Bilateral crackles, expiratory wheezes appreciated. Symmetrical chest rise. No respiratory distress. Cardiac: tachycardic, regular, -mrg. Radial pulses intact and symmetrical. Abdominal: Nontender, nondistended, soft. BS present. MOTOR: Moving all extremities equally No LE swelling. PT/radial pulse intact and symmetrical SENSORY: Normal to touch in upper and lower extremities without deficit or asymmetry Results & Data Results & Data ([facility]) Vital Signs (Past 12 Hours) Vital Signs Temp Pulse Pulse Pulse Resp BP Pulse Ox 05/21/21 11:33 37.3 C 94 H 20 111/76 92 05/21/21 07:37 92 H 05/21/21 07:18 37.4 C 104 H 20 111/79 93 05/21/21 03:12 37.5 C 94 H 20 106/71 92 PG Care Time/CCT Total # of Minutes Spent Total Time Spent with Patient: Total time spent is greater than 50% in coordination of care (as documented) at patient's floor/unit and/or counseling patient: Coding Level of Care Code 72982 Subseq Hosp Care Lvl 3 Diagnoses Acute respiratory failure with hypoxia J96.01 COVID-19 U07.1 Cough R05 Fatigue R53.83 Fatigue type: unspecified Tachycardia R00.0 DVT prophylaxis Z29.9 Transaminitis R74.01 (1) Fatigue Fatigue type: unspecified Qualified Code(s): R53.83 - Other fatigue
[2021-05-21] MEDS: POTASSIUM CHLORIDE CRTAB 20 MEQ TABCR PO SCH (20:40)
[2021-05-21] MEDS ORDERED: POLYETHYLENE (MIRALAX) 17 GM PACK PO PRN (21:22)
[2021-05-22 07:21] LABS: Basophils # (auto) 0.01 K/uL (0-0.2); Basophils % (auto) 0.2 %; Hematocrit (blood only) 42.7 % (37-47); Immature Granulocytes # (auto) 0.01 K/uL (0.00-0.02); Immature Granulocytes % (auto) 0.2 %; Lymphocytes # (auto) 1.01 K/uL (1.2-3.4); Lymphocytes % (auto) 22.2 %; Mean Corpuscular Hemoglobin 30.1 pg (25-34); Mean Corpuscular Hgb Conc 32.8 g/dL (32-36); Mean Corpuscular Volume 91.8 fL (80-100); Mean Platelet Volume 9.5 fL (7.4-10.4); Monocytes # (auto) 0.37 K/uL (0.11-0.59); Monocytes % (auto) 8.1 %; Neutrophils # (auto) 3.15 K/uL (1.4-6.5); Neutrophils % (auto) 69.3 %; Platelet Count 256 K/uL (130-400); RDW Coefficient of Variation 13.8 % (11.5-14.5); RDW Standard Deviation 46.2 fL (36.4-46.3); Red Blood Count 4.65 M/uL (4.2-5.4); White Blood Count 4.55 K/uL (4.8-10.8)
[2021-05-22 07:55] LABS: Albumin Level 3.1 gm/dl (3.4-5.0); BUN Creatinine Ratio 23.9 (10-20); Creatinine Clr Calc Pharmacy 119.3 ml/min; Est GFR (African American) 121.7 ml/min; Potassium 3.4 mmol/L (3.5-5.1)
[2021-05-22 07:58] LABS: Albumin Globulin Ratio 0.8 (0.9-2); Bilirubin,Total 0.7 mg/dl (0.2-1); Total Protein 7.1 gm/dl (6.4-8.2)
[2021-05-22] MEDS: ENOXAPARIN INJ 40 MG/0.4 ML SYR SQ SCH ×2 (08:38→19:49)
[2021-05-22] MEDS: dexAMETHasone 6 MG in SYRINGE 0 ML IV SCH (08:38)
[2021-05-22] MEDS: POTASSIUM CHLORIDE CRTAB 20 MEQ TABCR PO SCH ×2 (08:39→19:48)
[2021-05-22] MEDS: BENZONATATE 100 MG CAPSULE PO SCH ×3 (08:47→19:48)
--- NOTE | 2021-05-22 15:42 | Hospitalist Progress Note ---
Date of Service May 22, 2021 Assessment & Plan (1) Acute respiratory failure with hypoxia: Plan: Summary: 50yo F who presented to the ED after d/c from [facility] and prior ER visit with worsening COVID ~day 10 and who was febrile, with tachyarrythmia, tachypnea and hypotension now improving. AHRF and sepsis by qSOFA criteria (2 points) abd SIRS criteria 2/2 COVID PNA - COVID19 positive - Presented on 05/20 at ~day 10 of illness - Receieved monoclonal Ab 05/19 - Downtrending O2 requirments and stabilizing vitals, pt remains severely ill with poor PO intake. -Tenuous require 2 L, appears ill - Remdesivir deferred after risk/benefit discussion. Pt on 10 day of sx with less benefit and has a mild transaminitis on admission - Spirometer, Flutter PRN - Nebs Q6H PRN Continue Decadron 10-day course (2) COVID-19: Plan: Treatment as otherwise noted D-dimer elevated, given elevated D-dimer on admission with tacky arrhythmia was concerned for potential CT PE from patient's interval assessment at [facility] Repeat CTPE ordered 05/20. No evidence for pulmonary embolus. Moderate multifocal groundglass airspace opacities consistent with a viral pneumonia. (3) Cough: Plan: Tessalon as needed, Covid treatment as noted (4) Fatigue: Plan: 2/2 Covid pneumonia expect slow gradual resolution (5) Tachycardia: Plan: Sinus tachycardia Initial concern for SVT, on EKG P waves visible Improved substantially following fluid resuscitation and supportive care Continue supportive care, fluids as needed if poor p.o. intake, continue telemetry (6) DVT prophylaxis: Plan: Lovenox Covid dosing (7) Transaminitis: Plan: 2/2 Covid, continue to trend Plan: Sepsis 2/2 COVID PNA with tachyarrythmia >150bmp on admission. Improving, progressing towards discharge. Has oxygen at home. Anticipate dc home when medically ready and PO intake improved. Admission and Anticipated Discharge Date Admission Date: May 20, 2021 Subjective Saw Vivian at the bedside this morning. Stil lhaving poor PO intake, but slightly improved today. No nausea/vomiting, no diarrhea. SHort of breath with ambulation, mild shortness of breath at rest improved with oxygen. No chest pain, chest pressure, palpidations. No fevers, chills sweats. Endorses intermittent but improving headache. Review of Systems Review of Systems: Constitutional: See HPI Eyes: Denies double vision, vision change, eye pain ENT: Denies ear pain, sore throat, sinus pain Cardiovascular: Denies Chest pain, chest pressure, palpitations, extremity swelling Respiratory: See HPI Gastrointestinal: See HPI Genitourinary: See HPI Musculoskeletal: Endorses body aches, global fatigue improved from prior Integumentary: Denies rash, lesions, bruising Neurological: See HPI Physical Exam Physical Exam: General: A&Ox3. NAD. Cooperative. HEENT: Atraumatic, normocephalic. Visual acuity and hearing intact Pulm: Moderate air movement, diffuse crackles, bibasilar crackles. Symmetrical chest rise. No increase work of breathing. No respiratory distress. Cardiac: RRR, -mrg. Radial pulses intact and symmetrical. Abdominal: Nontender, nondistended, soft. BS present. Ext: Warm, moist. Results & Data Results & Data ([facility]) Vital Signs (Past 12 Hours) Vital Signs Temp Pulse Resp BP BP Pulse Ox 05/22/21 12:12 36.6 C 86 16 112/72 93 05/22/21 11:15 94 05/22/21 08:35 36.5 C 84 24 105/83 89 L 05/22/21 03:17 36.7 C 78 20 109/73 91 PG Care Time/CCT Total # of Minutes Spent Total Time Spent with Patient: Total time spent is greater than 50% in coordination of care (as documented) at patient's floor/unit and/or counseling patient: Coding Level of Care Code 22428 Subseq Hosp Care Lvl 3 Diagnoses Acute respiratory failure with hypoxia J96.01 COVID-19 U07.1 Cough R05 Fatigue R53.83 Fatigue type: unspecified Tachycardia R00.0 DVT prophylaxis Z29.9 Transaminitis R74.01 (1) Fatigue Fatigue type: unspecified Qualified Code(s): R53.83 - Other fatigue
[2021-05-22] MEDS: ACETAMINOPHEN 325 MG TAB PO PRN (17:51)
[2021-05-23] MEDS ORDERED: ALBUTEROL HFA 8 GM INHALER INH PRN (01:51)
[2021-05-23] MEDS ORDERED: guaiFENesin/DEXTROM SYRUP 100MG/10MG 5ML UDC PO PRN (02:00)
[2021-05-23 07:37] LABS: Basophils # (auto) 0.01 K/uL (0-0.2); Basophils % (auto) 0.2 %; Eosinophils # (auto) 0.01 K/uL (0-0.5); Eosinophils % (auto) 0.2 %; Hematocrit (blood only) 42.9 % (37-47); Hemoglobin 14.2 g/dL (12.0-16.0); Immature Granulocytes # (auto) 0.02 K/uL (0.00-0.02); Immature Granulocytes % (auto) 0.3 %; Lymphocytes # (auto) 1.23 K/uL (1.2-3.4); Lymphocytes % (auto) 21.1 %; Mean Corpuscular Hemoglobin 30.3 pg (25-34); Mean Corpuscular Hgb Conc 33.1 g/dL (32-36); Mean Corpuscular Volume 91.5 fL (80-100); Mean Platelet Volume 9.3 fL (7.4-10.4); Monocytes # (auto) 0.56 K/uL (0.11-0.59); Monocytes % (auto) 9.6 %; Neutrophils # (auto) 4.01 K/uL (1.4-6.5); Neutrophils % (auto) 68.6 %; Platelet Count 313 K/uL (130-400); RDW Coefficient of Variation 13.5 % (11.5-14.5); Red Blood Count 4.69 M/uL (4.2-5.4); White Blood Count 5.84 K/uL (4.8-10.8)
[2021-05-23] MEDS: POTASSIUM CHLORIDE CRTAB 20 MEQ TABCR PO SCH ×2 (07:59→19:15)
[2021-05-23] MEDS: dexAMETHasone 6 MG in SYRINGE 0 ML IV SCH (07:59)
[2021-05-23] MEDS: ENOXAPARIN INJ 40 MG/0.4 ML SYR SQ SCH ×2 (07:59→20:18)
[2021-05-23 08:05] LABS: Albumin Level 3.2 gm/dl (3.4-5.0); BUN Creatinine Ratio 28.9 (10-20); Creatinine Clr Calc Pharmacy 136.1 ml/min; Est GFR (African American) 127.4 ml/min; Est GFR (Non-African American) 109.9 ml/min; Potassium 3.8 mmol/L (3.5-5.1)
[2021-05-23 08:07] LABS: Albumin Globulin Ratio 0.8 (0.9-2); Bilirubin,Total 0.8 mg/dl (0.2-1); Globulin 3.8 gm/dl (2.5-4.0)
[2021-05-23] MEDS: BENZONATATE 100 MG CAPSULE PO SCH ×3 (08:07→19:15)
--- NOTE | 2021-05-23 13:31 | Hospitalist Progress Note ---
Date of Service May 23, 2021 Assessment & Plan (1) Acute respiratory failure with hypoxia: Plan: Summary: 50yo F who presented to the ED after d/c from [facility] and prior ER visit with worsening COVID ~day 10 and who was febrile, with tachyarrythmia, tachypnea and hypotension now improving. AHRF and sepsis by qSOFA criteria (2 points) abd SIRS criteria 2/2 COVID PNA Improved, patient continues to have a residual oxygen requirement but is stable on less than 4 L with ambulation on two-step. Her acute sepsis has resolved, anticipate a slow recovery and will likely require home oxygen for several days to weeks as she recovers from Covid. - COVID19 positive - Presented on 05/20 at ~day 10 of illness - Received monoclonal Ab 05/19 - Remdesivir deferred after risk/benefit discussion. Pt on 10 day of sx with less benefit and has a mild transaminitis on admission - Spirometer, Flutter PRN - Nebs Q6H PRN Continue Decadron 10-day course - Discussed her case with both Vivian and her by phone, given her overnight desaturation, history of multiple hospital bounce backs, tachyarrhythmia on admit while being d/tayo from ER, and her episode of hypoxia last night they do not feel comfortable with discharge today, but comfortable with discharge tomorrow if remaining stable overnight (2) COVID-19: Plan: Treatment as otherwise noted D-dimer elevated, given elevated D-dimer on admission with tacky arrhythmia was concerned for potential CT PE from patient's interval assessment at [facility] Repeat CTPE ordered 05/20. No evidence for pulmonary embolus. Moderate multifocal groundglass airspace opacities consistent with a viral pneumonia. (3) Cough: Plan: Tessalon as needed, Covid treatment as noted (4) Fatigue: Plan: 2/2 Covid pneumonia expect slow gradual resolution (5) Tachycardia: Plan: Sinus tachycardia Initial concern for SVT, on EKG P waves visible Improved substantially following fluid resuscitation and supportive care Continue supportive care, fluids as needed if poor p.o. intake, continue telemetry (6) DVT prophylaxis: Plan: Lovenox Covid dosing (7) Transaminitis: Plan: 2/2 Covid, continue to trend Plan: Sepsis 2/2 COVID PNA with tachyarrythmia >150bmp on admission. Improving, progressing towards discharge. Has oxygen at home. Anticipate dc home when medically ready and PO intake improved. Admission and Anticipated Discharge Date Admission Date: May 20, 2021 Subjective Seen at bedside this morning. Pt anxious, reports had an episode last night where she got up and attempted to go to the bathroom with her oxygen and desatted to the high 70s/low 80s. She reports this made her feel extremely anxious and unsure, but feels like she has been okay this morning since waking up. No shortness of breath at rest. Some shortness of breath with exertion which improves with rest. No fever/chills. Continues to have a dry cough. No abdominal pain appetite is good, no nausea/vomiting/diarrhea/constipation. Discussed her case with both Vivian and her by phone, given her history of multiple hospital bounce backs, tachyarrhythmia on admit while being d/tayo from ER, and her episode of hypoxia last night they do not feel comfortable with discharge today, but feel that she may be ready to go tomorrow Review of Systems Review of Systems: Constitutional: See HPI Eyes: Denies double vision, vision change, eye pain ENT: Denies ear pain, sore throat, sinus pain Cardiovascular: Denies Chest pain, chest pressure, palpitations, extremity swelling Respiratory: See HPI Gastrointestinal: See HPI Genitourinary: See HPI Musculoskeletal: Endorses body aches, global fatigue improved from prior Integumentary: Denies rash, lesions, bruising Neurological: See HPI Physical Exam Physical Exam: General: A&Ox3. NAD, appears anxious. Cooperative. HEENT: Atraumatic, normocephalic. Visual acuity and hearing intact Pulm: Moderate air movement, diffuse crackles. Symmetrical chest rise. No increase work of breathing. No respiratory distress. Cardiac: RRR, -mrg. Radial pulses intact and symmetrical. Abdominal: Nontender, nondistended, soft. BS present. Ext: Warm, dry. Moving all extremities equally. DP pulses intact and symmetrical. Results & Data Results & Data ([facility]) Vital Signs (Past 12 Hours) Vital Signs Temp Pulse Pulse Pulse Pulse Pulse Pulse 05/23/21 12:25 36.5 C 87 05/23/21 11:39 99 H 101 H 100 H 05/23/21 07:55 36.5 C 75 09/18/21 07:41 67 05/23/21 05:57 05/23/21 02:52 36.7 C 82 05/23/21 02:03 78 05/23/21 02:00 36.7 C 78 Resp Resp Resp Resp BP Pulse Ox Pulse Ox 05/23/21 12:25 18 101/75 94 05/23/21 11:39 24 22 18 89 L 05/23/21 07:55 18 102/63 92 05/23/21 07:41 05/23/21 05:57 92 05/23/21 02:52 20 113/86 93 05/23/21 02:03 24 90 05/23/21 02:00 22 90 Pulse Ox Pulse Ox 05/23/21 12:25 05/23/21 11:39 90 91 05/23/21 07:55 05/23/21 07:41 05/23/21 05:57 05/23/21 02:52 05/23/21 02:03 05/23/21 02:00 PG Care Time/CCT Total # of Minutes Spent Total Time Spent with Patient: Total time spent is greater than 50% in coordination of care (as documented) at patient's floor/unit and/or counseling patient: Coding Level of Care Code 71878 Subseq Hosp Care Lvl 2 Diagnoses Acute respiratory failure with hypoxia J96.01 COVID-19 U07.1 Cough R05 Fatigue R53.83 Fatigue type: unspecified Tachycardia R00.0 DVT prophylaxis Z29.9 Transaminitis R74.01 (1) Fatigue Fatigue type: unspecified Qualified Code(s): R53.83 - Other fatigue
[2021-05-23] MEDS: ACETAMINOPHEN 325 MG TAB PO PRN (16:49)
[2021-05-24] MEDS: POTASSIUM CHLORIDE CRTAB 20 MEQ TABCR PO SCH (07:15)
[2021-05-24] MEDS: dexAMETHasone 6 MG in SYRINGE 0 ML IV SCH (07:16)
[2021-05-24] MEDS: BENZONATATE 100 MG CAPSULE PO SCH ×2 (07:16→13:59)
[2021-05-24] MEDS: ENOXAPARIN INJ 40 MG/0.4 ML SYR SQ SCH (07:16)
[2021-05-24] MEDS: ACETAMINOPHEN 325 MG TAB PO PRN (07:16)
[2021-05-24 08:44] LABS: Basophils # (auto) 0.01 K/uL (0-0.2); Basophils % (auto) 0.2 %; Eosinophils # (auto) 0.04 K/uL (0-0.5); Eosinophils % (auto) 0.6 %; Hematocrit (blood only) 44.2 % (37-47); Hemoglobin 14.8 g/dL (12.0-16.0); Immature Granulocytes # (auto) 0.05 K/uL (0.00-0.02); Immature Granulocytes % (auto) 0.8 %; Lymphocytes # (auto) 1.56 K/uL (1.2-3.4); Lymphocytes % (auto) 24.6 %; Mean Corpuscular Hemoglobin 30.3 pg (25-34); Mean Corpuscular Hgb Conc 33.5 g/dL (32-36); Mean Corpuscular Volume 90.4 fL (80-100); Mean Platelet Volume 9.3 fL (7.4-10.4); Monocytes # (auto) 0.58 K/uL (0.11-0.59); Monocytes % (auto) 9.2 %; Neutrophils # (auto) 4.09 K/uL (1.4-6.5); Neutrophils % (auto) 64.6 %; Platelet Count 361 K/uL (130-400); RDW Coefficient of Variation 13.5 % (11.5-14.5); RDW Standard Deviation 44.5 fL (36.4-46.3); Red Blood Count 4.89 M/uL (4.2-5.4); White Blood Count 6.33 K/uL (4.8-10.8)
[2021-05-24 08:54] LABS: Albumin Level 3.3 gm/dl (3.4-5.0); BUN Creatinine Ratio 24.6 (10-20); Calcium 9.3 mg/dl (8.5-10.1); Creatinine Clr Calc Pharmacy 103.5 ml/min; Est GFR (African American) 116.3 ml/min; Est GFR (Non-African American) 100.3 ml/min
[2021-05-24 08:56] LABS: Albumin Globulin Ratio 0.8 (0.9-2); Bilirubin,Total 0.8 mg/dl (0.2-1); Globulin 4.2 gm/dl (2.5-4.0); Total Protein 7.5 gm/dl (6.4-8.2)
--- NOTE | 2021-05-24 11:11 | Discharge Summary ---
Date of Service May 24, 2021 Admission HPI Per Admitting Provider COVID PNA Started with cough 10 days ago, intermittent fevers and chills. Persistent cough and shortness of breath have worsened over the last week. Some burning in her throught. No chest pain, chest pressure, or palpitations. Endorses terrible headache. Diarrhea 1x a day liquid no blood or melena. Some cough/stress incontinence. No appetite, has not been eating and trying to drink fluids as much as she can at home. ONly keeping water down. Denies nausea. Intermittent abdominal pain. Got monoclonal ab last night. No fhx of arrythmia. Lives at home. Daughter had COVID 19 day before she did, 'breezed right through it and wasn't very sick.' Did not get the COVID vaccination MedHx: Denies other med problems, hx of kidney stones Medications: NOne Allergie: PCN, Sulfa Fhx: No fhx of blood clots, strokes, [place] Social: Lives at home with and 3 children, no one other than daughter is sick. No hx of tobacco product use. Rare social alcohol. No recreational drug use.l No Hx of asthma or lung problems. Discussed case with pts in detail. Confirms had CT-PE at [facility] which was negative Admission Exam Per Admitting Provider General: A&Ox3. Appears ill. Skin warm, moist. HEENT: Atraumatic, normocephalic. Visual acuity and hearing grossly intact. Pulm: Bilateral crackles, expiratory wheezes appreciated. Symmetrical chest rise. No respiratory distress. Cardiac: tachycardic, regular, -mrg. Radial pulses intact and symmetrical. Abdominal: Nontender, nondistended, soft. BS present. CRANIAL NERVES: II: Pupils equal and reactive, no relative afferent pupillary defect, no VF cuts III, IV, : EOM intact, no gaze preference or deviation, no nystagmus. V: normal sensation in V1, V2, and V3 segments bilaterally VII: no asymmetry, no nasolabial fold flattening VIII: normal hearing to speech IX, X: normal palatal elevation, no uvular deviation XI: 5/5 head turn and 5/5 shoulder shrug bilaterally XII: midline tongue protrusion MOTOR: RUE: 5/5 blade changer strength LUE: 5/5 blade changer strength, finger flexion/extension, interosseus RLE: 5/5 to hip flexion/extension, knee flexion/extension, ankle dorsiflexion/plantarflexion LLE: 5/5 to hip flexion/extension, knee flexion/extension, ankle dorsiflexion/plantarflexion SENSORY: Normal to touch in upper and lower extremities without deficit or asymmetry No LE swelling. PT/radial pulse intact and symmetrical Principal Diagnosis Acute Hypoxic Respiratory Failure Due To COVID19 pneumonia Discharge Exam General: A&Ox3. NAD, appears anxious. Cooperative. HEENT: Atraumatic, normocephalic. Visual acuity and hearing intact Pulm: Moderate air movement, diffuse crackles. Symmetrical chest rise. No increase work of breathing. No respiratory distress. Cardiac: RRR, -mrg. Radial pulses intact and symmetrical. Abdominal: Nontender, nondistended, soft. BS present. Ext: Warm, dry. Moving all extremities equally. DP pulses intact and symmetrical. Discharge Data Allergies Allergy/AdvReac Type Severity Reaction Status Date / Time Penicillins Allergy Unknown Verified 05/20/21 15:42 Sulfa (Sulfonamide Allergy Unknown Verified 05/20/21 15:42 Antibiotics) Consultations 05/20/21 09:27 ED Decision to Admit Stat Ordered Studies 05/20/21 17:40 CT angio chest PE protocol Stat Hospital Course (1) Acute respiratory failure with hypoxia: Summary: 50yo F who presented to the ED after d/c from [facility] and prior ER visit with worsening COVID ~day 10 and who was febrile, with tachyarrythmia, tachypnea and hypotension now improving. To do as outpatient: 1. Follow-up on progression of Covid pneumonia and oxygen requirements 2. Recheck CMP for resolution of transaminitis 2/2 Covid 3. Follow-up of breathing status following completion of steroid course AHRF and sepsis by qSOFA criteria (2 points) abd SIRS criteria 2/2 COVID PNA Improved, patient continues to have an intermittent residual oxygen requirement but is stable on less than 4 L with ambulation on two-step. Her acute sepsis has resolved, anticipate a slow recovery and will likely require home oxygen for several days to weeks as she recovers from Covid. She already has home oxygen set up following discharge from [facility], which will be brought by her family at time of discharge. Recommend titrating oxygen to goal of greater than 90%, and if requiring more than 4 L to maintain goal or unable to attain goal then to represent to emergency department for reevaluation. - COVID19 positive - Presented on 05/20 at ~day 10 of illness - Received monoclonal Ab 05/19 - Remdesivir deferred after risk/benefit discussion. Pt on 10 day of sx with less benefit and has a mild transaminitis on admission - Spirometer, Flutter PRN - Nebs Q6H PRN Continue Decadron 10-day course (2) COVID-19: Treatment as otherwise noted D-dimer elevated, given elevated D-dimer on admission with tacky arrhythmia was concerned for potential CT PE from patient's interval assessment at [facility] Repeat CTPE ordered 05/20. No evidence for pulmonary embolus. Moderate multifocal groundglass airspace opacities consistent with a viral pneumonia. (3) Cough: Tessalon as needed, Covid treatment as noted (4) Fatigue: 2/2 Covid pneumonia expect slow gradual resolution (5) Tachycardia: Sinus tachycardia Initial concern for SVT, on EKG P waves visible Improved substantially following fluid resuscitation and supportive care Continue supportive care, fluids as needed if poor p.o. intake, continue telemetry (6) DVT prophylaxis: Lovenox Covid dosing (7) Transaminitis: 2/2 Covid, continue to trend Total Time Total Time Spent Total Time Spent (In Minutes): Total time spent preparing discharge including direct patient care, coordination of care, review of labs and images, and documentation approximately 35 minutes Discharge Plan Discharge Items Patient Disposition: Home - Self-Care Reason For Visit: COVID 19 PNA, HYPOXIA, SVT Discharge Diagnosis: Acute hypoxic respiratory failure due to Covid pneumonia Condition on Discharge: Good Activity: Per Instructions section Non-emergency contact: Primary Care Provider Call non-emergency contact if: you have any medication questions, your symptoms worsen, your pain is not controlled, your pain is worsening, your pain is unusual for you, your pain is concerning for you, you have a fever and your rectal temperature is above 100.4 Follow-up/Referrals: Bill Man DO [Primary Care Provider] - Diet: Regular Addtl Attending Provider Instructions: You were seen in the hospital for a fast heart rate and low oxygen levels due to Covid pneumonia. You have been treated with oxygen, steroids, fluids, and supportive care and slowly improved. Your fast heart rate on admission resolved with fluid treatment, and was thought to be reactive to Covid with dehydration. Your oxygen levels were checked with exertion and at rest prior to discharge, while your oxygen levels stayed above 88% while using oxygen, you are being discharged to continue home oxygen both at rest and with exertion as needed. It is likely you will need home oxygen for several days to a few weeks while you recover from COVID. You may use a home pulse ox to check your oxygen levels, however please be aware that 100% is not normal. Goal oxygen level is anything above 90%, and remaining at 100% can suggest that you are using too much oxygen. Please follow-up with your primary care provider for continued assessment and a djustments if needed. Medications have been prescribed as noted below, and appointments are being scheduled as noted below. You are being sent home to complete a course of steroids with dexamethasone 6 mg. Please take dexamethasone 6 mg once daily for 7 additional days (1 week). An appointment is being scheduled for you with your PCP Dr. Man. You should be seen within 1 week. You should receive a call to confirm this appointment, if you do not receive a call within 48 hours or need to cancel/change your appointment please call his office at [phone]. If you develop any new or worsening symptoms including fever, chills, sweats, chest pain, chest pressure, difficulty breathing, uncontrolled nausea/vomiting, rash, wheezing, passing out or nearly passing out, bleeding, black/bloody bowel movements, or other new or concerning symptoms please call your primary care physician at [phone], or call 911 for re-evaluation in the emergency department if you are very concerned. Pending Studies at Discharge: No Stand-Alone Forms: [facility], Smoking Cessation Medications and DC Order Prescriptions: New dexamethasone 6 mg tablet 6 mg PO DAILY Qty: 7 RF: 0 Continued acetaminophen [Tylenol Extra Strength] 500 mg Tablet 1,000 mg PO Q6H PRN (Reason: Pain) RF: 0 Discontinued azithromycin 250 mg Tablet 250 mg PO DAILY RF: 0 Discharge Orders: Discharge Order (Routine); Ordered 05/24/21 Ordered By: Viet Alvarado Admission Data Admit Date/Time: 05/20/21 10:20 Attending Provider: Viet Alvarado Admit Provider: Viet Alvarado Primary Care Provider: Bill Man Other Providers: Viet Alvarado Coding Level of Care Code D/C DAY MANAGEMENT >30 MINS Diagnoses Acute respiratory failure with hypoxia J96.01 COVID-19 U07.1 Cough R05 Fatigue R53.83 Fatigue type: unspecified Tachycardia R00.0 DVT prophylaxis Z29.9 Transaminitis R74.01
[2021-05-24 13:17] LABS: Potassium 4.5 mmol/L (3.5-5.1)
== END 2021-05-24 16:40 | disposition home or self-care (01) | DRG 871 ==
LOC: ED 18:31 → EDINP 05-20 10:20 → MERGE 05-20 10:20 → 2S 05-20 14:11